=== PATIENT | female | born 1960 | race American Indian/Alaskan Native ===

== ENCOUNTER 2018-08-11 12:07 | Inpatient (IN) | payer OTHER ==
--- NOTE | 2018-08-11 13:56 | Emergency Department Report ---
ED Head Trauma HPI - General Chief complaint: Head Injury Stated complaint: HEAD INJURY Time Seen by Provider: 08/11/18 13:08 Source: patient Mode of arrival: Ambulatory Limitations: No Limitations - History of Present Illness Initial comments: 58-year-old female presents to ED with complaints of headache. Patient states one week ago she was waiting to get on to an elevator. When the doors opened, a woman carrying a box stepped out of the elevator but did not see her, and walked into her. She states the heavy box hit her in the forehead. So much so that she fell to the ground, but did not hit her head upon falling. Patient denies LOC. States was seen in urgent care later that day for another head injury. Patient states 2 days later, she began having headaches, dizziness, blurred vision, memory problems. Patient states vision is decreased and she is seeing spots in right visual mcdonnell. MD Complaint: head injury -: week(s) (1) Mechanism of Injury: other (blunt injury) Location: frontal Loss of Consciousness: no Place: work Radiation: none Severity: moderate Quality: other (throbbing) Consistency: intermittent Other Injuries: none Associated Symptoms: vision changes. denies: nausea, vomiting, numbness, weakness, tingling, neck pain - Related Data Allergies/Adverse reactions: Allergies Allergy/AdvReac Type Severity Reaction Status Date / Time latex Allergy Swelling Verified 08/11/18 12:14 NSAIDS (Non-Steroidal Allergy Swelling Verified 08/11/18 12:14 Anti-Inflamma ED Review of Systems ROS: Stated complaint: HEAD INJURY Other details as noted in HPI Comment: All other systems reviewed and negative Constitutional: denies: chills, fever Eyes: vision change Gastrointestinal: denies: nausea, vomiting Musculoskeletal: other (denies neck pain) Neurological: headache, other (reports memory problems and dizziness) ED Past Medical Hx - Past Medical History Previous Medical History?: Yes Hx Diabetes: Yes Additional medical history: sleep disorder - Surgical History Past Surgical History?: Yes Additional Surgical History: neck surgery. stomach wrapped around esophagus. fibroids removed - Social History Smoking Status: Never Smoker Substance Use Type: None ED Physical Exam - General Limitations: No Limitations General appearance: alert, in no apparent distress - Head Head exam: Present: atraumatic, normocephalic - Eye Eye exam: Present: normal appearance, PERRL, EOMI, other (visual deficit present in right visual field of bilateral eyes) - ENT ENT exam: Present: mucous membranes moist - Neck Neck exam: Present: normal inspection, full ROM. Absent: tenderness - Respiratory Respiratory exam: Present: normal lung sounds bilaterally. Absent: respiratory distress - Cardiovascular Cardiovascular Exam: Present: regular rate, normal rhythm - GI/Abdominal GI/Abdominal exam: Present: soft. Absent: tenderness - Extremities Exam Extremities exam: Present: normal inspection, other (ambulates with cane at baseline due to chronic back pain) - Back Exam Back exam: Present: normal inspection - Neurological Exam Neurological exam: Present: alert, oriented X3. Absent: motor sensory deficit - Expanded Neurological Exam Expanded Neurological exam: Present: innattentive - Psychiatric Psychiatric exam: Present: normal affect, normal mood - Skin Skin exam: Present: warm, dry, intact, normal color - Other Other exam information: NIHSS 1 (LOC) = 0 2 (gaze)= 0 3 (visual mcdonnell)= 2 complete hemianopsia 4 (facial palsy)= 0 5a (left arm motor drift) =0 5b (right arm motor drift)= 0 6a (left leg motor drift)= 0 6b (right leg motor drift) =0 7 (limb ataxia)= 0 8 (sensation)= 0 9 (language/aphasia)= 0 10 (dysarthria)= 0 11 (extinction/ inattention)= 0 Total = 2 ED Course Vital Signs 08/11/18 08/11/18 12:14 13:05 Temperature 98.5 F Pulse Rate 78 Respiratory 18 17 Rate Blood Pressure 152/67 O2 Sat by Pulse 100 Oximetry - Lab Data Result diagrams: 08/11/18 14:50 Lab Results 08/11/18 08/11/18 Range/Units 14:50 14:50 WBC 6.3 (4.5-11.0) K/mm3 RBC 4.75 (3.65-5.03) M/mm3 Hgb 14.5 H (10.1-14.3) gm/dl Hct 41.4 (30.3-42.9) % MCV 87 (79-97) fl MCH 31 (28-32) pg MCHC 35 H (30-34) % RDW 12.9 L (13.2-15.2) % Plt Count 252 (140-440) K/mm3 Lymph % (Auto) 52.2 H (13.4-35.0) % [place] % (Auto) 5.6 (0.0-7.3) % Eos % (Auto) 0.7 (0.0-4.3) % Baso % (Auto) 1.1 (0.0-1.8) % Lymph # 3.3 (1.2-5.4) K/mm3 [place] # 0.3 (0.0-0.8) K/mm3 Eos # 0.0 (0.0-0.4) K/mm3 Baso # 0.1 (0.0-0.1) K/mm3 Seg Neutrophils % 40.4 (40.0-70.0) % Seg Neutrophils # 2.5 (1.8-7.7) K/mm3 PT 11.8 L (12.2-14.9) Sec. INR 0.83 L (0.87-1.13) APTT 21.6 L (24.2-36.6) Sec. - Radiology Data Radiology results: report reviewed, image reviewed CT HEAD WITHOUT CONTRAST: HISTORY: Head injury, headache, blurred vision. TECHNIQUE: Sequential 2.5mm CT images. COMPARISON: none. FINDINGS: Cerebral Parenchyma: Diminished attenuation is identified throughout most of the left posterior cerebral artery territory. This is consistent with a subacute ischemic infarct. The remaining brain parenchyma demonstrates normal attenuation. Cerebellum: Within normal limits. Brainstem: Within normal limits. Ventricles: Normal. Sella: Normal. Extra-axial spaces: Normal. Basal Cisterns: Normal. Intracranial Hemorrhage: None. Midline Shift: None. Calvarium: Normal. Sinuses: Normal. Mastoid Air Cells: Normal. Visualized Orbits: Normal. 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 No evidence for hemorrhage. These findings were discussed with Dr. Arriaga in the emergency department at 1429 hrs. Transcribed By: TTR Dictated By: KAREN HARDY JR, MD Electronically Authenticated By: KAREN HARDY JR, MD Signed Date/Time: 08/11/18 1431 - Medical Decision Making 58-year-old female reports head injury one week ago with symptoms of headache dizziness and visual deficits. On exam patient has deficits of right visual mcdonnell of bilateral eyes. CT head shows subacute left posterior CVA. Spoke with Dr. Ch, hospitalist. Agrees to admit the patient for further workup. - Differential Diagnosis intracranial injury, concussion, CVA Critical care attestation.: If time is entered above; I have spent that time in minutes in the direct care of this critically ill patient, excluding procedure time. ED Disposition Clinical Impression: CVA (cerebrovascular accident) Disposition: -09 OP ADMIT IP TO THIS HOSP Is pt being admited?: Yes Condition: Stable Referrals: PRIMARY CARE, [Primary Care Provider] - 3-5 Days Time of Disposition: 14:51
--- NOTE | 2018-08-11 14:32 | Cat Scan Report ---
CT HEAD WITHOUT CONTRAST: HISTORY: Head injury, headache, blurred vision. TECHNIQUE: Sequential 2.5mm CT images. COMPARISON: none. FINDINGS: Cerebral Parenchyma: Diminished attenuation is identified throughout most of the left posterior cerebral artery territory. This is consistent with a subacute ischemic infarct. The remaining brain parenchyma demonstrates normal attenuation. Cerebellum: Within normal limits. Brainstem: Within normal limits. Ventricles: Normal. Sella: Normal. Extra-axial spaces: Normal. Basal Cisterns: Normal. Intracranial Hemorrhage: None. Midline Shift: None. Calvarium: Normal. Sinuses: Normal. Mastoid Air Cells: Normal. Visualized Orbits: Normal. 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 No evidence for hemorrhage. These findings were discussed with Dr. Arriaga in the emergency department at 1429 hrs.
[2018-08-11] MEDS ORDERED: REGLAN PO PRN (14:55)
[2018-08-11] MEDS ORDERED: PROVENTIL IH PRN (14:55)
[2018-08-11] MEDS ORDERED: MILK OF MAGNESIA PO PRN (14:55)
[2018-08-11] MEDS ORDERED: DULCOLAX PR PRN (14:55)
[2018-08-11] MEDS ORDERED: PHENERGAN PR PRN (14:55)
[2018-08-11] MEDS ORDERED: ZOFRAN IV PRN (14:55)
[2018-08-11] MEDS ORDERED: TYLENOL PO PRN (14:55)
[2018-08-11] MEDS ORDERED: SODIUM CHLORIDE FLUSH SYRINGE 10 ML IV PRN (14:55)
--- NOTE | 2018-08-11 14:55 | History and Physical Report ---
History of Present Illness Chief complaint: I felt weak History of present illness: 58 YO Female with DM, Insomnia presents to ED for evaluation. Pt states that she has experienced intermittent dizziness, blurred vision, headache, and short term memory deficit over the past 1 week, with worsening symptoms over the past 2 days. Pt stats that she was struck in the head while at work, and sustained a fall from a standing position. Pt transported to [facility] by family for further care and evaluation. Pt denies NVD, productive cough, vertigo, loss of bowel/bladder continence, foot drop, skin rash, or recent ill contacts. Pt seen and evaluated in ED and found to have symptoms consistent with CVA. Pt admitted to telemetry, and initiated on CVA protocol. Past History Past Medical History: diabetes Past Surgical History: Other (Neck, Anuja Fundoplication) Social history: single. denies: smoking, alcohol abuse, prescription drug abuse Family history: diabetes Medications and Allergies Allergies Allergy/AdvReac Type Severity Reaction Status Date / Time latex Allergy Swelling Verified 08/11/18 12:14 NSAIDS (Non-Steroidal Allergy Swelling Verified 08/11/18 12:14 Anti-Inflamma Review of Systems Constitutional: weakness, no weight loss, no weight gain, no fever, no chills Ears, nose, mouth and throat: headache, no ear pain, no ear discharge, no tinnitis, no decreased hearing, no nose pain, no nasal congestion, no nasal discharge Breasts: no change in shape, no swelling, no mass Cardiovascular: no chest pain, no orthopnea, no palpitations, no rapid/ irregular heart beat, no edema, no syncope Respiratory: no cough, no cough with sputum, no excessive sputum, no hemoptysis , no shortness of breath Gastrointestinal: no abdominal pain, no nausea, no vomiting, no diarrhea, no constipation, no change in bowel habits Genitourinary Female: no pelvic pain, no flank pain, no menorrhagia, no dysuria , no urinary frequency, no urgency Rectal: no pain, no incontinence, no bleeding Musculoskeletal: no neck stiffness, no neck pain, no arm numbness/tingling, no low back pain, no shooting leg pain Integumentary: no rash, no pruritis, no redness, no sores, no wounds, no jaundice Neurological: headaches, double vision, no transient paralysis, no paralysis, no tingling, no seizures, no syncope, no tremors Psychiatric: insomnia, no anxiety, no memory loss, no change in sleep habits, no sleep disturbances, no hypersomnia, no change in appetite, no change in libido, no suicidal ideation Endocrine: no cold intolerance, no heat intolerance, no polyphagia, no excessive thirst, no polydipsia, no nocturia Hematologic/Lymphatic: no easy bruising, no easy bleeding, no lymphadenopathy, no lymphedema Allergic/Immunologic: no urticaria, no allergic rhinitis, no wheezing, no persistent infections, no anaphylaxis, no angioedema Exam - Constitutional Vitals: Temp Pulse Resp BP Pulse Ox 98.5 F 78 17 152/67 100 08/11/18 12:14 08/11/18 12:14 08/11/18 13:05 08/11/18 12:14 08/11/18 12:14 General appearance: Present: no acute distress, well-nourished - EENT Eyes: Present: PERRL ENT: hearing intact, clear oral mucosa - Neck Neck: Present: supple, normal ROM - Respiratory Respiratory effort: normal Respiratory: bilateral: CTA - Cardiovascular Heart Sounds: Present: S1 & S2. Absent: rub, click - Extremities Extremities: pulses symmetrical, No edema Peripheral Pulses: within normal limits - Abdominal General gastrointestinal: Present: soft, non-tender, non-distended, normal bowel sounds Female genitourinary: Present: normal - Integumentary Integumentary: Present: clear, warm, dry - Musculoskeletal Musculoskeletal: gait normal, strength equal bilaterally - Psychiatric Psychiatric: appropriate mood/affect, intact judgment & insight - Neurologic Neurologic: CNII-XII intact, moves all extremities Results - Labs CBC & Chem 7: 08/11/18 14:50 08/11/18 14:50 Assessment and Plan - Patient Problems (1) CVA (cerebrovascular accident) Current Visit: Yes Status: Acute Qualifiers: Precerebral and cerebral artery: posterior cerebral artery Laterality of affected vessel: bilateral Plan to address problem: Admit to telemetry, CT head, MRI Brain, MRA Brain, Echo, carotid doppler, EEG, antiplatelet therapy, statin therapy, lipid panel, neuro checks. (2) Diabetes Current Visit: Yes Status: Acute Plan to address problem: ADA diet, insulin, accu check (3) DVT prophylaxis Current Visit: Yes Status: Acute Plan to address problem: SCD to BLE while in bed.
[2018-08-11 15:06] LABS: Basophils # (Auto) 0.1 K/mm3 (0.0-0.1); Basophils % (Auto) 1.1 % (0.0-1.8); Eosinophils % (Auto) 0.7 % (0.0-4.3); Hematocrit 41.4 % (30.3-42.9); Hemoglobin 14.5 gm/dl (10.1-14.3); Lymphocytes # (Auto) 3.3 K/mm3 (1.2-5.4); Lymphocytes % (Auto) 52.2 % (13.4-35.0); Mean Corpuscular HGB Conc 35 % (30-34); Mean Corpuscular Hemoglobin 31 pg (28-32); Mean Corpuscular Volume 87 fl (79-97); Monocytes # (Auto) 0.3 K/mm3 (0.0-0.8); Monocytes % (Auto) 5.6 % (0.0-7.3); Platelet Count 252 K/mm3 (140-440); Red Blood Count 4.75 M/mm3 (3.65-5.03); Red Cell Distribution Width 12.9 % (13.2-15.2)
[2018-08-11 15:16] LABS: INR 0.83 (0.87-1.13)
[2018-08-11 15:17] LABS: Partial Thromboplastin Time 21.6 Sec. (24.2-36.6)
[2018-08-11 15:20] LABS: Chol/HDL Ratio 2.22 %
[2018-08-11 15:54] LABS: Alanine Aminotransferase 10 units/L (7-56); Albumin 4.3 g/dL (3.9-5); BUN/Creatinine Ratio 30; Blood Urea Nitrogen 15 mg/dL (7-17); Calcium 9.4 mg/dL (8.4-10.2); Hemolysis Index 4
[2018-08-11] MEDS ORDERED: NORCO 5/325 PO PRN (22:53)
[2018-08-12] MEDS: ASPIRIN PO SCH (09:16)
[2018-08-12] MEDS: HumaLOG SUB-Q SCH ×2 (09:17→16:35)
[2018-08-12] MEDS ORDERED: NON-FORMULARY (Insulin Aspart [Novolog Flexpen] 15 UNITS) SUB-Q SCH (10:00)
--- NOTE | 2018-08-12 13:44 | Magnetic Resonance Report ---
MRI BRAIN WITHOUT CONTRAST: 08/12/18 CLINICAL: Stroke. TECHNIQUE: Axial diffusion, T1, T2, gradient echo T2*, coronal and axial FLAIR and sagittal T1 sequences on a 1.5 Sindy magnet. FINDINGS: Normal ventricles and sulci. Stricture diffusion involving a large portion of the medial left occipital lobe and no other restricted diffusion. There is corresponding gyral swelling and T2 hyperintensity involving the medial left occipital lobe on FLAIR and T2. Mild mass effect but no midline shift. No mass. No hemorrhage, edema or extra-axial collection. No chronic micro-bleeds on the gradient echo sequence. Normal pituitary and optic chiasm. The brainstem and cerebellum are normal. Intact vascular flow voids. Normal sinuses. The orbits, and soft tissues are normal. Normal calvarium and skull base. 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
--- NOTE | 2018-08-12 13:49 | Magnetic Resonance Report ---
MRA HEAD WITHOUT CONTRAST: 08/12/18 CLINICAL: Left TRAVELING SECRETARY infarct. TECHNIQUE: Axial 3-D [id number] MR angiography of the [place] with review of axial source images. FINDINGS: Intact [place] with no aneurysm, stenosis or occlusion. Symmetric blood flow in the anterior, middle and posterior cerebral arteries. Only a small portion of the right vertebral artery is identified. The left vertebral and basilar arteries are normal. IMPRESSION: A patent left TRAVELING SECRETARY despite findings of an acute or subacute left TRAVELING SECRETARY infarct on MRI. 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
--- NOTE | 2018-08-12 16:40 | Progress Note ---
Assessment and Plan /Left SIGNAL MECHANIC stroke, embolic with Old lacunar stroke cont to monitor at telemetry, pending MRI Brain, Echo, carotid doppler, cont antiplatelet therapy, statin therapy, lipid panel, neuro checks. consult neurology /Possible vertebral artery dissection, likely right Ordered CTA head / Diabetes type 2 ADA diet, insulin, accu check / DVT prophylaxis SCD to BLE while in bed. Subjective Date of service: 08/12/18 Interval history: Pt seen and examined No headache, ambulating in her room no focal weaknesses Objective - Constitutional Vitals: Vital Signs - 12hr 08/12/18 08/12/18 08/12/18 04:52 05:13 08:11 Temperature 98.2 F 98.4 F Pulse Rate 79 87 Respiratory 18 18 Rate Blood Pressure 155/70 143/69 Blood Pressure 155/70 [Left] O2 Sat by Pulse 100 100 Oximetry 08/12/18 08/12/18 12:32 15:34 Temperature 98.3 F 98.4 F Pulse Rate 78 84 Respiratory 16 18 Rate Blood Pressure Blood Pressure 115/67 129/73 [Left] O2 Sat by Pulse 100 99 Oximetry General appearance: Present: no acute distress, well-nourished - EENT Eyes: PERRL, EOM intact ENT: hearing intact, clear oral mucosa Ears: bilateral: normal - Neck Neck: supple, normal ROM - Respiratory Respiratory effort: normal Respiratory: bilateral: CTA - Cardiovascular Rhythm: regular Heart Sounds: Present: S1 & S2. Absent: gallop, rub Extremities: pulses intact, No edema, normal color, Full ROM - Gastrointestinal General gastrointestinal: Present: soft, non-tender, non-distended, normal bowel sounds - Integumentary Integumentary: clear, warm, dry - Musculoskeletal Musculoskeletal: 1, strength equal bilaterally - Neurologic Neurologic: moves all extremities - Psychiatric Psychiatric: memory intact, appropriate mood/affect, intact judgment & insight - Labs CBC & Chem 7: 08/11/18 14:50 08/11/18 14:50 Labs: Abnormal lab results 08/11/18 08/11/18 08/12/18 Range/Units 17:20 23:57 04:57 POC Glucose 225 H 255 H 196 H (70-105) 08/12/18 Range/Units 15:32 POC Glucose 251 H (70-105) - Imaging and cardiology CT Scan - head: report reviewed
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
--- NOTE | 2018-08-12 21:10 | Cat Scan Report ---
FINAL REPORT PROCEDURE: CT angiogram neck with contrast. TECHNIQUE: Computerized tomographic angiography of the neck was performed after the IV injection of iodinated nonionic contrast including image processing. The image data was postprocessed using 2-dimensional multiplanar reformatted (MPR) and 3-dimensional (MIP and/or volume rendered) techniques. 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 Note: Assessment of carotid artery stenosis is based on measurement of the distal internal carotid artery diameter as the denominator for stenosis calculations and the [place] Symptomatic Carotid Endarterectomy Trial (NASCET) stenosis criteria . CPT 3100F FINDINGS: The origins of the innominate artery, left common carotid artery and left subclavian artery are widely patent. Both common carotid arteries are widely patent. There is some atherosclerotic plaque at the right carotid artery bifurcation. This causes mild narrowing at the origin of the right external carotid artery. There is no significant narrowing at the origin of the right internal carotid artery. The cervical portion of the right internal carotid artery is widely patent. There is some mild atherosclerotic plaque at the left carotid artery bifurcation. This causes no significant narrowing of the internal nor external carotid arteries however. The cervical portion of the left internal carotid artery is widely patent. The left vertebral artery is widely patent. Only the origin of the right vertebral artery is faintly visible. The entire right vertebral artery does not opacify. There is no way to determine whether this represents a chronic occlusion, an acute embolus or acute thrombosis. The soft tissues of the neck are unremarkable. The bones appear intact. The mastoid air cells and paranasal sinuses are clear as far as visualized. IMPRESSION: Occlusion of the right vertebral artery.
--- NOTE | 2018-08-12 21:32 | Cat Scan Report ---
FINAL REPORT PROCEDURE: CT angiogram head with contrast. TECHNIQUE: Computerized tomographic angiography of the head was performed after the IV injection of iodinated nonionic contrast including image processing. The image data was postprocessed using 2-dimensional multiplanar reformatted (MPR) and 3-dimensional (MIP and/or volume rendered) techniques. 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 FINDINGS: Both distal internal carotid arteries are patent. Both anterior cerebral arteries are patent. The anterior communicating artery is patent. Both middle cerebral arteries are patent. Posterior communicating arteries are not visible and may be congenitally absent. The distal right vertebral artery does not opacify. The left vertebral artery appears normal. The basilar artery is patent. Both anterior inferior cerebellar arteries are patent. Both superior cerebellar and both posterior cerebral arteries are patent. There are no signs of aneurysm disease. There is no evidence of a vasculitis. There may be some subtle diminished attenuation within medial portion of the left occipital lobe. There are no signs of abnormal contrast enhancement. IMPRESSION: Occluded right vertebral artery. Possible subacute stroke in the left occipital lobe.
[2018-08-12] MEDS ORDERED: LANTUS SUB-Q SCH (22:00)
[2018-08-12] MEDS ORDERED: NON-FORMULARY (Insulin Detemir [Levemir Flextouch] 20 UNITS) SUB-Q SCH (22:00)
[2018-08-13 00:06] LABS: Bilirubin,Urine NEG (Negative); Blood,Urine NEG (Negative); Color,Urine Straw (Yellow); Protein,Urine <15 mg/dL mg/dL (Negative); Urobilinogen,Urine < 2.0 mg/dL (<2.0)
[2018-08-13 07:57] VITALS: BP 127/54
[2018-08-13] MEDS: HumaLOG SUB-Q SCH (08:38)
[2018-08-13] MEDS: ASPIRIN PO SCH (09:12)
--- NOTE | 2018-08-13 11:21 | Event Note ---
Date: 08/13/18 CTA head normal. CTA neck shows occlusion at origin of right vertebral artery. Radiologist cannot say whether chronic or due to acute embolus or acute thrombus. To me, distal vertebral on the right looks small, suggesting it is congenitally small. No literature on occlusion due to this kind of neck injury. Could find no reports of dissection of origin of a vertebral artery and should look different on imaging anyway. Suggest continuing antiplatelet therapy. Suggest repeat CT angio neck in 3 months to see if any recanalization. Given only one lacune elsewhere than her stroke, would not do special stroke labs but would suggest 30 day event monitoring for occult PAF. Signing off, call for any questions.
[2018-08-13] MEDS ORDERED: LANTUS SUB-Q SCH (14:09)
--- NOTE | 2018-08-13 14:21 | Discharge Summary ---
Providers - Providers Date of Admission: 08/11/18 14:55 Date of discharge: 08/13/18 Attending physician: MILDRED BOWEN 08/11/18 14:56 Occupational Therapy Evaluate and Treat [CONS] Routine Comment: Reason For Exam: Neuro deficits Physical Therapy Evaluation and Treat [CONS] Routine Comment: Reason For Exam: Neuro deficits Speech Therapy Evaluation and Treat [CONS] Routine Reason For Exam: swallow eval 08/12/18 11:31 Consult to Physician [CONS] Routine Comment: Consulting Provider: MELI RAMIREZ Physician Instructions: Reason For Exam: possible CVA/TIA Primary care physician: SPEECH AND HEARING CLINIC DIRECTOR Hospitalization Condition: Stable Hospital course: Discharge diagnosis: /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 Physical exam: General appearance: Present: no acute distress, well-nourished - EENT Eyes: PERRL, EOM intact ENT: hearing intact, clear oral mucosa Ears: bilateral: normal - Neck Neck: supple, normal ROM - Respiratory Respiratory effort: normal Respiratory: bilateral: CTA - Cardiovascular Rhythm: regular Heart Sounds: Present: S1 & S2. Absent: gallop, rub Extremities: pulses intact, No edema, normal color, Full ROM - Gastrointestinal General gastrointestinal: Present: soft, non-tender, non-distended, normal bowel sounds - Integumentary Integumentary: clear, warm, dry - Musculoskeletal Musculoskeletal: 1, strength equal bilaterally - Neurologic Neurologic: moves all extremities - Psychiatric Psychiatric: memory intact, appropriate mood/affect, intact judgment & insight Disposition: DC-01 TO HOME OR SELFCARE Time spent for discharge: 34 minutes Core Measure Documentation - Palliative Care Palliative Care/ Comfort Measures: Not Applicable - Core Measures Any of the following diagnoses?: none Exam - Constitutional Vitals: Temp Pulse Resp BP Pulse Ox 98.5 F 82 18 127/54 97 08/13/18 07:38 08/13/18 07:38 08/13/18 07:38 08/13/18 07:38 08/13/18 07:38 Plan Activity: advance as tolerated Weight Bearing Status: Weight Bear as Tolerated Diet: low fat, low salt Additional Instructions: f/u @ [facility] in one week for evevnt monitoring. Repeat CTA head in next 3 months Follow up with: PRIMARY CARE, [Primary Care Provider] - 3-5 Days Prescriptions: AtorvaSTATin [Lipitor] 40 mg PO QHS #30 tablet Aspirin EC [Aspirin Enteric Coated TAB] 81 mg PO QDAY #30 tablet.
[2018-08-13] MEDS ORDERED: HumaLOG SUB-Q SCH (16:30)
[2018-08-13] MEDS ORDERED: HumuLIN R SUB-Q SCH (16:30)
== END 2018-08-13 16:30 | disposition home or self-care (01) | DRG 64 ==
LOC: ED 12:07 → 4A 14:55
PROVIDERS: ADMIT Internal Medicine; ATTEND Internal Medicine
DX: I63.9 Cerebral infarction, unspecified (principal); I77.74 Dissection of vertebral artery; E11.9 Type 2 diabetes mellitus without complications; I65.01 Occlusion and stenosis of right vertebral artery; R29.702 NIHSS score 2; Z82.49 Family history of ischemic heart disease and other diseases of the circulatory system; Z91.040 Latex allergy status; Z79.4 Long term (current) use of insulin; Z79.899 Other long term (current) drug therapy; Z83.3 Family history of diabetes mellitus
CPT/HCPCS: 36415; 70450; 70496; 70498; 70544; 70551; 80053; 80061; 81001; 82962; 85025; 85610; 85730; 87116; 93005; 93010; 93306; 93880; A9270-GY; J1815; Q9967